=== PATIENT | female | born 1965 | race Caucasian/White ===

== ENCOUNTER 2017-04-21 09:31 | Day surgery (SDC) | payer OTHER ==
--- NOTE | 2017-04-21 06:52 | GHP ---
[f rep st] HISTORY AND PHYSICAL DATE OF ADMISSION: 04/21/2017 CHIEF COMPLAINT: Left breast mass. HISTORY OF PRESENT ILLNESS: The patient is a 52-year-old woman who was diagnosed with a T1a N0 left breast cancer. She underwent accelerated partial breast irradiation. She continues to have a small mass in the scar line that is bothersome. She has a BRCA2 mutation of uncertain significance. PAST MEDICAL HISTORY: None. PAST SURGICAL HISTORY: Lumpectomy as above. MEDICATIONS: Clonazepam 0.5 mg p.o. twice daily p.r.n. anxiety. ALLERGIES: No known drug allergies. SOCIAL HISTORY: She is with 2 children. She denies tobacco or illegal drug use. FAMILY HISTORY: Significant for breast cancer in her maternal grandmother, and ovarian cancer in her paternal grandmother. Her father has hyperlipidemia and coronary artery disease. Her mother has hy pertension. REVIEW OF SYSTEMS: A 10-point review of systems negative. PHYSICAL EXAMINATION: GENERAL: Pleasant, well-nourished, well-groomed woman. HEENT: Normocephalic . No gross hearing deficits. Mucous membranes moist. Pupils equal and round. No scleral icterus. LUNGS: Clear to auscultation bilaterally. No increased work of breathing. CARDIAC: Regular rate. BREAST: Exam performed in the upright and supine position. There were no abnormal masses or discha rge on the right breast. On the left breast she does have a small nodule in her scar line. I perfor med an ultrasound which showed it to be fluid filled. LYMPH: No cervical, supraclavicular, or axilla ry lymphadenopathy. ABDOMEN: Deferred. MUSCULOSKELETAL: Normal gait. Normal nails. SKIN: Warm and dry. PSYCH: Mood and affect normal. IMPRESSION AND PLAN: The patient is a 52-year-old woman with a history of a T1a N0 breast cancer. S he has a bothersome nodule in the scar line. Since this is in the scar line we will perform excision al biopsy. The risks and benefits, including, but not limited to, stroke, heart attack, , blood clots, infection, bleeding, damage to surrounding structures, were all discussed. She had her quest ions answered to her satisfaction. /[id number]/MODL
[2017-04-21] MEDS ORDERED: ceFAZolin 2 GM/SWFI 2 GM/20 ML SYR IVP ONE (09:45)
[2017-04-21] MEDS ORDERED: LIDOCAINE 1% 2 ML INJ ONE (09:50)
[2017-04-21] MEDS ORDERED: LR 1,000 ML IV ONE (10:01)
[2017-04-21] MEDS ORDERED: LIDOCAINE 1% 2 ML INJ ID PRN (10:01)
[2017-04-21] MEDS ORDERED: BUPIVACAINE 0.5% 30 ML SDV ONE (10:17)
[2017-04-21] MEDS ORDERED: LIDOCAINE 1% 300 MG/30 ML SDV ONE (10:17)
--- NOTE | 2017-04-21 10:27 | PDHPUP ---
History & Physical Update H&P update statement: This history and physical update is based on an assessment of the patient which was completed after admission or registration (within 24 hours), but prior to the surgery/procedure. H&P update: H&P reviewed & patient examined, no change in patient's condition since H&P completed
[2017-04-21] MEDS ORDERED: MIDAZOLAM 2 MG/2 ML VIAL IVP ONE (10:43)
--- NOTE | 2017-04-21 10:43 | PDANEPAE ---
ANE Past Medical History - Cardiovascular History Hx Hypertension: No Hx Arrhythmias: No Hx Chest Pain: No Hx Coronary Artery / Peripheral Vascular Disease: No Hx CHF / Valvular Disease: No Hx Palpitations: No Cardiovascular History Comment: ELEV BP W/STRESS - Pulmonary History Hx COPD: No Hx Asthma/Reactive Airway Disease: No Hx Recent Upper Respiratory Infection: No Hx Oxygen in Use at Home: No Hx Sleep Apnea: No Sleep Apnea Screening Result - Last Documented: Negative - Neurologic History Hx Cerebrovascular Accident: No Hx Seizures: No Hx Dementia: No Neurologic History Comment: MIGRAINES - OCCAS - Endocrine History Hx Diabetes: No - Renal History Hx Renal Disorders: No - Liver History Hx Hepatic Disorders: No - Neurological & Psychiatric Hx Hx Neurological and Psychiatric Disorders: No - Cancer History Hx Cancer: No Cancer History Comment: L BREAST CA - Congenital Disorder History Hx Congenital Disorders: No - GI History Hx Gastrointestinal Disorders: No - Other Health History Other Health History: NEG - Chronic Pain History Chronic Pain: No - Surgical History Prior Surgeries: LUMPECTOMY L BREAST. 2013 RECONSTRUCTION BREAST ANE Review of Systems Review of Systems: - Exercise capacity METS (RN): 6 METS ANE Patient History - Allergies Allergies/Adverse Reactions: No Known Allergies Allergy (Verified 04/19/17 14:05) - Home Medications Home Medications: Herbals/Supplements -Info Only 04/19/17 [Last Taken 2 Days Ago ~04/19/17] - NPO status NPO Since - Liquids (Date): 04/21/17 NPO Since - Liquids (Time): 07:30 NPO Since - Solids (Date): 04/20/17 NPO Since - Solids (Time): 22:30 - Smoking Hx Smoking Status: Former smoker - Family Anes Hx Family Hx Anesthesia Complications: NEG ANE Labs/Vital Signs - Vital Signs Blood Pressure: 165/95 Heart Rate: 90 Respiratory Rate: 14 O2 Sat (%): 100 Height: 171.45 cm Weight: 79.379 kg ANE Physical Exam - Airway Mallampati Score: Class 1 Mouth exam: normal dental/mouth exam - Pulmonary Pulmonary: no respiratory distress, no rales or rhonchi, clear to auscultation - Cardiovascular Cardiovascular: regular rate and rhythym, no murmur, rub, or gallop - ASA Status ASA Status: I
[2017-04-21] MEDS ORDERED: PROPOFOL/EMULSION 500 MG/50 ML BOTTLE IV ONE (10:52)
[2017-04-21] MEDS ORDERED: MIDAZOLAM 2 MG/2 ML VIAL ONE (10:52)
--- NOTE | 2017-04-21 11:21 | POSTOPPROG ---
Post Op Note Date of Operation: 04/21/17 Surgeon: Fernanda Shafer Newborn Hearing Screener: lebron Anesthesiologist: braydon Anesthesia: GET(General Endotracheal) Pre-op Diagnosis: L breast mass Post-op Diagnosis: L breast mass Indication: 52 yo with L breast mass Procedure: Excision L breast mass Findings: Firm tissue Inf/Abcess present in the surg proc area at time of surgery?: No Depth: Superfical (Skin SQ) Specimen(s): breast mass
[2017-04-21] MEDS ORDERED: DEXAMETHASONE 4 MG/ML VIAL ONE (11:27)
[2017-04-21] MEDS ORDERED: ONDANSETRON 4 MG/2 ML VIAL ONE (11:27)
[2017-04-21] MEDS ORDERED: RANITIDINE 50 MG/2 ML VIAL ONE (11:27)
[2017-04-21] MEDS ORDERED: ONDANSETRON 4 MG/2 ML VIAL IVP PRN (11:42)
[2017-04-21] MEDS ORDERED: NALOXONE HCL 0.4 MG/ML INJ IVP PRN (11:42)
[2017-04-21] MEDS ORDERED: HYDROCODONE/APAP 5/325 TAB PO PRN (11:42)
[2017-04-21] MEDS ORDERED: fentaNYL 100 MCG/2 ML INJ IVP PRN (11:42)
--- NOTE | 2017-04-21 11:44 | POSTANESTH ---
Post Anesthetic Evaluation Respiratory Status: Normal, Stable Level of Consciousness/Mental Status: Can Participate in Eval Pain Control: Adequate, Prn Tx Ordered Nausea/Vomiting Control: Adequate, Prn Tx Ordered Complications Possibly Related to Anesthesia: None Noted
--- NOTE | 2017-04-21 12:39 | GOP ---
[f rep st] OPERATIVE REPORT DATE OF OPERATION: 04/21/2017 SURGEON: Fernanda Shafer MD SQL SERVER ARCHITECT: Thalia Low, LEYDI ANESTHESIA: Monitored anesthesia care with IV sedation. ANESTHESIOLOGIST: Dougie Andrade MD PREOPERATIVE DIAGNOSIS: Left breast mass. POSTOPERATIVE DIAGNOSIS: Left breast mass. PROCEDURE PERFORMED: Excisional biopsy, left breast mass. FINDINGS: Firm tissue SPECIMENS: Left breast mass. ESTIMATED BLOOD LOSS: Less than 10 cc. INDICATIONS: The patient is a 52-year-old woman, who had a T1a N0 breast cancer in 2011. She had radiation. She has developed a mass in the scar line. It is bothersome. DESCRIPTION OF PROCEDURE: The patient was brought into the operating room, placed supine on the table. Monitored anesthesia care with IV sedation was performed. Her left breast was prepped and draped in the usual sterile fashion. I infiltrated the area with 10 cc of 0.5% Marcaine mixed with 1% lidocaine. I ellipsed her previous scar, I dissected down to healthy breast tissue. This was sent to Pathology. Hemostasis was achieved. I closed the deep layer with 3-0 Vicryl, closed the skin with 3-0 Vicryl followed by 4-0 Monocryl. Mastisol, Steri-Strips, sterile dressing were applied. She was awakened in the operating room, transferred to PACU in stable condition. /[id number]/MODL MTDD
[2017-04-21 13:00] VITALS: BP 137/83; PULSE 73; RESP 16; TEMP 97.5; O2SAT 100
== END 2017-04-21 13:05 | disposition home or self-care (01) ==
LOC: FSGY 09:31
PROVIDERS: ATTEND Surgery
PROC: 0HBU0ZZ Excision of Left Breast, Open Approach (ICD-10-PCS; principal; 2017-04-21 11:00)
DX: N63.20 Unspecified lump in the left breast, unspecified quadrant (principal); Z85.3 Personal history of malignant neoplasm of breast; Z80.3 Family history of malignant neoplasm of breast
CPT/HCPCS: J0690; J1100; J2250; J2405; J2704; J2780